=== PATIENT | female | born 1980 | race Caucasian/White ===

== ENCOUNTER 2021-04-20 12:30 | Inpatient (IN) ==
--- NOTE | 2021-04-20 14:10 | ED.ABDFE ---
HPI Time Seen Time Seen by Provider: 04/20/21 14:10 Complaint Chief Complaint:: PATIENT CAME TO ER REPORTS HAVING CONSTIPATION AND LOWER ABDOMEN FOR LAST 3 WEEKS. PATIENT REPORTS TAKING LAXITIVES AND NOW HAVING VOMITING. PATIENT REPORTS TAKING MAG CITRATE WITH RESULTS. COVID-19 Coronavirus risk:travel/contact w/high risk person: No Has patient experienced Coronavirus symptoms: No Source History Provided: Patient Mode of arrival Mode of Arrival: Wheelchair Timing Onset of Chief Complaint: 04/20/21 PMH PMH Past Medical History: Yes Past Medical History: Hypertension Past Surgical History: Yes Surgical History: Cholecystectomy Family History History of Family Medical Conditions: Yes Family Medical History: Diabetes Mellitus, Cancer and Hypertension Social History Alcohol Use: Rarely Do you use any recreational Drugs:: No Lives With: Family Lives Where: Home Travel Risk Coronavirus risk:travel/contact w/high risk person: No Has patient experienced Coronavirus symptoms: No Infectious screening In the last 2 months have you had wt loss of >10#?: NO Have you had fever, night sweats or hemotysis?: No Have you traveled outside the country in the last 6 months?: No Isolation: Standard PE Vital Signs Vitals: Temperature 97.6 F Pulse Rate 80 Respiratory Rate 18 Blood Pressure 180/75 O2 Sat by Pulse Oximetry 97 ROR Labs Reviewed Result Diagrams: 04/20/21 14:24 04/20/21 14:24 Laboratory: WBC 8.5 X10^3/uL (3.6-10.0) 04/20/21 14:24 RBC 3.98 X10^6/uL (3.5-5.4) 04/20/21 14:24 Hgb 8.5 g/dL (12.0-16.0) L 04/20/21 14:24 Hct 27.6 % (36.0-47.0) L 04/20/21 14:24 MCV 69.4 fL (80.0-100.0) L 04/20/21 14:24 MCH 21.3 pg (27.0-34.0) L 04/20/21 14:24 MCHC 30.7 g/dL (33.0-35.0) L 04/20/21 14:24 RDW 20.2 % (11.6-16.5) H 04/20/21 14:24 Plt Count 489 X10^3/uL (150.0-450.0) H 04/20/21 14:24 Plt Count Comment Increased (ADEQUATE) A 04/20/21 14:24 MPV 6.7 fL (7.4-11.0) L 04/20/21 14:24 Neut % (Auto) 78.4 % (42.0-75.0) H 04/20/21 14:24 Lymph % (Auto) 12.5 % (21.0-51.0) L 04/20/21 14:24 [place] % (Auto) 8.6 % (0.0-13.0) 04/20/21 14:24 Eos % (Auto) 0.2 % (0.9-2.9) L 04/20/21 14:24 Baso % (Auto) 0.3 % (0.2-1.0) 04/20/21 14:24 Neut # (Auto) 6.6 x10^3/uL (2.2-4.8) H 04/20/21 14:24 Lymph # (Auto) 1.1 X10^3/uL (1.3-2.9) L 04/20/21 14:24 [place] # (Auto) 0.7 x10^3/uL (0.3-0.8) 04/20/21 14:24 Eos # (Auto) 0.0 x10^3/uL (0.0-0.2) 04/20/21 14:24 Baso # (Auto) 0.0 X10^3/uL (0.0-0.1) 04/20/21 14:24 Absolute Nucleated RBC 0.0 /100WBC 04/20/21 14:24 Plt Morphology Comment Normal (NORMAL) 04/20/21 14:24 RBC Morphology Abnormal (NORMAL) A 04/20/21 14:24 Hypochromasia 1+ A 04/20/21 14:24 Anisocytosis 1+ A 04/20/21 14:24 Microcytosis 1+ A 04/20/21 14:24 Sodium 139 mmol/L (136-145) 04/20/21 14:24 Corrected Sodium TNP 04/20/21 14:24 Potassium 5.4 mmol/L (3.5-5.1) H 04/20/21 14:24 Chloride 102 mmol/L (98-107) 04/20/21 14:24 Carbon Dioxide 21.9 mmol/L (21-32) 04/20/21 14:24 BUN 47 mg/dL (7-18) H 04/20/21 14:24 Creatinine 4.45 mg/dL (0.55-1.02) H 04/20/21 14:24 Est GFR (MDRD) Af Amer 14 (>60) L 04/20/21 14:24 Est GFR (MDRD) Non-Af 12 (>60) L 04/20/21 14:24 Glucose 97 mg/dL (65-99) 04/20/21 14:24 Calcium 8.8 mg/dL (8.5-10.1) 04/20/21 14:24 Corrected Calcium 9.8 mg/dL (8.5-10.1) 04/20/21 14:24 Total Bilirubin 0.40 mg/dL (0.2-1.0) 04/20/21 14:24 AST 11 Units/L (15-37) L 04/20/21 14:24 ALT 10 Units/L (12-78) L 04/20/21 14:24 Alkaline Phosphatase 93 Units/L (46-116) 04/20/21 14:24 Total Protein 7.3 g/dL (6.4-8.2) 04/20/21 14:24 Albumin 2.8 g/dL (3.4-5.0) L 04/20/21 14:24 Globulin 4.5 g/dL (2.5-4.5) 04/20/21 14:24 Albumin/Globulin Ratio 0.6 Ratio (1.1-2.1) L 04/20/21 14:24 Amylase 20 Units/L (25-115) L 04/20/21 14:24 Lipase 68 Units/L (73-393) L 04/20/21 14:24 Specimen Type Clean catch urine 04/20/21 14:13 Urine Color [place] (YELLOW) 04/20/21 14:13 Urine Appearance Cloudy (CLEAR) 04/20/21 14:13 Urine pH 5.0 (5.0 - 8.0) 04/20/21 14:13 Ur Specific [place] 1.015 (1.000-1.030) 04/20/21 14:13 Urine Protein 3+ (NEGATIVE) 04/20/21 14:13 Urine Glucose (UA) Negative (NEGATIVE) 04/20/21 14:13 Urine Ketones Negative (NEGATIVE) 04/20/21 14:13 Urine Occult Blood 5+ (NEGATIVE) 04/20/21 14:13 Urine Nitrite Positive (NEGATIVE) 04/20/21 14:13 Urine Bilirubin Negative (NEGATIVE) 04/20/21 14:13 Urine Urobilinogen Normal (NORMAL) 04/20/21 14:13 Ur Leukocyte Esterase 3+ (NEGATIVE) 04/20/21 14:13 Urine RBC 3-5 /HPF (0-3) A 04/20/21 14:13 Urine WBC 5-10 /HPF (0-5) A 04/20/21 14:13 Ur Squamous Epith Cells Many /HPF (NEGATIVE) 04/20/21 14:13 Ur Transition Epith Cell Few /HPF (NEGATIVE) 04/20/21 14:13 Amorphous Sediment 1+ /HPF (NEGATIVE) 04/20/21 14:13 Urine Bacteria 3+ /HPF (NEGATIVE) 04/20/21 14:13 Ur Culture Indicated? No/not indicated 04/20/21 14:13 Opioid Opioid Risk Tool Age (Theodore box if 16-45): Yes History of Preadolescent Sexual Abuse: No Total: 1 Total Score Risk Category: Low Risk Copyright: Davonte BECKWITH predicting aberrant behaviors Diagnosis Discharge Problem: Diverticulitis, Kidney stone, Abdominal pain Instructions Instructions: Kidney Stones, [id number] Diverticulitis, [id number] Abdominal Pain, Adult Forms: Precautions for COVID19 Patient Portal Social Distancing
[2021-04-20] MEDS ORDERED: TORADOL 60 MG VIAL IM ONE (14:11)
[2021-04-20] MEDS ORDERED: NORFLEX INJ IM ONE (14:11)
[2021-04-20 14:27] LABS: BILIRUBIN,URINE NEGATIVE (NEGATIVE); BLOOD/HEMOGLOBIN,URINE 5+ (NEGATIVE); GLUCOSE, URINE NEGATIVE (NEGATIVE); KETONES,URINE NEGATIVE (NEGATIVE); LEUKOCYTE ESTERASE ,URINE 3+ (NEGATIVE); NITRITES,URINE POSITIVE (NEGATIVE); PROTEIN,URINE 3+ (NEGATIVE); UROBILINOGEN,URINE NORMAL (NORMAL)
[2021-04-20] MEDS ORDERED: TORADOL 60 MG VIAL ONE (14:28)
[2021-04-20 14:35] LABS: APPEARANCE,URINE CLOUDY (CLEAR); COLOR,URINE ORANGE (YELLOW)
[2021-04-20 14:36] LABS: AMORPHOUS SEDIMENT,UR 1+ /HPF (NEGATIVE); BACTERIA,URINE 3+ /HPF (NEGATIVE); SQUAMOUS EPITHELIAL CELL,UR MANY /HPF (NEGATIVE); TRANSITIONAL EPI CELLS,URINE FEW /HPF (NEGATIVE)
[2021-04-20 14:38] LABS: BASOPHILS % (AUTO) 0.3 % (0.2-1.0); EOSINOPHILS % (AUTO) 0.2 % (0.9-2.9); HEMATOCRIT 27.6 % (36.0-47.0); HEMOGLOBIN 8.5 g/dL (12.0-16.0); LYMPHOCYTES # (AUTO) 1.1 X10^3/uL (1.3-2.9); LYMPHOCYTES % (AUTO) 12.5 % (21.0-51.0); MEAN CORPUSCULAR HEMOGLOBIN 21.3 pg (27.0-34.0); MEAN CORPUSCULAR HGB CONC 30.7 g/dL (33.0-35.0); MEAN CORPUSCULAR VOLUME 69.4 fL (80.0-100.0); MEAN PLATELET VOLUME 6.7 fL (7.4-11.0); MONOCYTES # (AUTO) 0.7 x10^3/uL (0.3-0.8); MONOCYTES % (AUTO) 8.6 % (0.0-13.0); NEUTROPHILS # (AUTO) 6.6 x10^3/uL (2.2-4.8); NEUTROPHILS % (AUTO) 78.4 % (42.0-75.0); PLATELET COUNT 489 X10^3/uL (150.0-450.0); RED BLOOD COUNT 3.98 X10^6/uL (3.5-5.4); RED CELL DISTRIBUTION WIDTH 20.2 % (11.6-16.5); WHITE BLOOD COUNT 8.5 X10^3/uL (3.6-10.0)
[2021-04-20 14:47] LABS: ALANINE AMINOTRANSFERASE 10 Units/L (12-78); ALBUMIN 2.8 g/dL (3.4-5.0); ALKALINE PHOSPHATASE 93 Units/L (46-116); AMYLASE 20 Units/L (25-115); ASPARTATE AMINO TRANSFERASE 11 Units/L (15-37); BLOOD UREA NITROGEN 47 mg/dL (7-18); CALCIUM 8.8 mg/dL (8.5-10.1); CARBON DIOXIDE 21.9 mmol/L (21-32); CHLORIDE 102 mmol/L (98-107); COR CA(FOR HYPOALB) 9.8 mg/dL (8.5-10.1); CREATININE 4.45 mg/dL (0.55-1.02); LIPASE 68 Units/L (73-393); SODIUM 139 mmol/L (136-145); TOTAL PROTEIN 7.3 g/dL (6.4-8.2); eGFR NON BLACK RACES 12 (>60)
[2021-04-20 14:54] LABS: ANISOCYTOSIS 1+; HYPOCHROMASIA 1+; MICROCYTOSIS 1+; PLATELET MORPHOLOGY COMMENT NORMAL (NORMAL)
--- NOTE | 2021-04-20 14:56 | CT ---
HISTORYPt c/o constipation and lower abdominal pain x's 3 days.STUDYABDOMEN/PELVIS W/O CONCOMPARISONNone.TECHNIQUEMultiple axial images of the abdomen and pelvis were obtained from the lung bases to the pubic symphysis without the administration of IV contrast. Dose reduction techniques including Automated Exposure Control (AEC) and adjustment of mA and kV were utilized.FINDINGSLack of contrast limits evaluation.There is suboptimal signal to noise and streak artifact. The body wall is not within the field of view completely.The lung bases are clear. The heart is normal in size. Post cholecystectomy. The liver, spleen, pancreas, and adrenal glands have a benign appearance. There is mild right hydroureteronephrosis but no distal obstructing calculus is identified. The left kidney appears benign. Uterus is present. Urinary bladder appears decompressed. Suspect free fluid in the pelvis. There is diverticulosis with pericolic stranding of adjacent to the sigmoid colon such as image 75 series 3. The presumed appendix appears benign and can be seen on image 72-85 of series 3. Negative for bowel obstruction. Non-atherosclerotic normal caliber abdominal aorta. There is retroperitoneal and pelvic adenopathy. For example there is a presumed left hemipelvic lymph node adjacent to the bifurcation of the iliac vessels that measures 2.5 cm short axis image 76 series 3. 2 cm short axis left periaortic lymph node image 64 series 3. No discernible free air or abscess. Incisional change in the lower anterior body wall. No acute osseous abnormality.IMPRESSIONLimited study.There is inflammatory fat stranding about the sigmoid colon in the left lower quadrant suspicious for acute uncomplicated diverticulitis. Consider colonoscopy after appropriate treatment.Pathologically enlarged lymph nodes in the retroperitoneum and pelvis, atypical for uncomplicated diverticulitis. This may be reactive from infection but lymphoma or metastatic adenopathy is not excluded. Recommend at a minimum a three-month CT follow-up study to document resolution. Other management options include PET-CT or biopsy.Mild right hydronephrosis without distal obstructing calculus. The urinary bladder is not well evaluated but appears decompressed. Hydronephrosis could be due to inflammation in the pelvis or secondary to pelvic adenopathy.Consider addition of IV contrast for better evaluation.Electronically signed by: Dusty Siddiqui (April 20, 2021 14:54:31)
[2021-04-20] MEDS ORDERED: FLEXERIL TAB 10 MG ONE (15:03)
[2021-04-20] MEDS: FLEXERIL TAB 10 MG PO PRN (15:33)
[2021-04-20] MEDS ORDERED: CIPRO TAB 500 MG PO ONE ×2 (17:41→17:55)
[2021-04-20] MEDS ORDERED: FLAGYL TAB 500 MG PO ONE (17:42)
[2021-04-20] MEDS ORDERED: FLAGYL TAB 250 MG PO ONE (17:55)
[2021-04-20] MEDS ORDERED: NS 1000 ML 1,000 ML IV ONE (19:20)
[2021-04-20] MEDS ORDERED: NS 1000 ML 1,000 ML ONE (19:33)
[2021-04-20] MEDS ORDERED: ZOFRAN INJ 4 MG VIAL IVP ONE (20:09)
[2021-04-20] MEDS ORDERED: ZOFRAN INJ 4 MG VIAL ONE (20:14)
[2021-04-20] MEDS ORDERED: DEMEROL INJ ONE (20:14)
[2021-04-20] MEDS: DEMEROL INJ IVP ONE ×2 (20:19→20:21)
[2021-04-20] MEDS ORDERED: CIPRO IV 400 MG PREMIX* 400 MG/200 ML IV.SOLN. IV SCH (21:22)
[2021-04-20] MEDS ORDERED: PEPCID 20 MG IV PREMIX* 20 MG/50 ML BAG IV PRN (21:22)
[2021-04-20] MEDS ORDERED: CIPRO IV 400 MG PREMIX* 0 MG/0 ML IV.SOLN. IV ONE (21:38)
[2021-04-20] MEDS: NS 1000 ML 1,000 ML IV SCH (21:40)
[2021-04-20] MEDS: FLAGYL IV PREMIX 500 MG BAG 500 MG/100 ML BAG IV SCH (22:10)
[2021-04-21] MEDS ORDERED: FLAGYL IV PREMIX 500 MG BAG 500 MG/100 ML BAG IV ONE (01:47)
[2021-04-21] MEDS: FLAGYL IV PREMIX 500 MG BAG 500 MG/100 ML BAG IV SCH ×3 (02:03→17:04)
[2021-04-21] MEDS ORDERED: FLEXERIL TAB 10 MG ONE (03:35)
[2021-04-21] MEDS ORDERED: ZOFRAN INJ 4 MG VIAL ONE (03:39)
[2021-04-21] MEDS: FLEXERIL TAB 10 MG PO PRN ×3 (03:40→22:56)
[2021-04-21] MEDS: ZOFRAN INJ 4 MG VIAL IVP PRN ×2 (03:44→16:07)
[2021-04-21] MEDS ORDERED: DEMEROL INJ ONE (04:45)
[2021-04-21] MEDS ORDERED: NS 1000 ML 1,000 ML ONE (04:46)
[2021-04-21] MEDS: DEMEROL INJ IVP PRN ×3 (04:52→20:36)
[2021-04-21 06:02] LABS: BASOPHILS % (AUTO) 0.4 % (0.2-1.0); EOSINOPHILS % (AUTO) 0.5 % (0.9-2.9); HEMATOCRIT 25.2 % (36.0-47.0); HEMOGLOBIN 7.7 g/dL (12.0-16.0); LYMPHOCYTES % (AUTO) 12.3 % (21.0-51.0); MEAN CORPUSCULAR HEMOGLOBIN 21.5 pg (27.0-34.0); MEAN CORPUSCULAR HGB CONC 30.7 g/dL (33.0-35.0); MONOCYTES # (AUTO) 0.7 x10^3/uL (0.3-0.8); MONOCYTES % (AUTO) 9.6 % (0.0-13.0); NEUTROPHILS % (AUTO) 77.2 % (42.0-75.0); PLATELET COUNT 458 X10^3/uL (150.0-450.0); RED CELL DISTRIBUTION WIDTH 20.2 % (11.6-16.5); WHITE BLOOD COUNT 7.7 X10^3/uL (3.6-10.0)
[2021-04-21 06:23] LABS: ALANINE AMINOTRANSFERASE 9 Units/L (12-78); ALBUMIN 2.5 g/dL (3.4-5.0); ALKALINE PHOSPHATASE 88 Units/L (46-116); AMYLASE 17 Units/L (25-115); ASPARTATE AMINO TRANSFERASE 10 Units/L (15-37); BLOOD UREA NITROGEN 50 mg/dL (7-18); CALCIUM 8.5 mg/dL (8.5-10.1); CARBON DIOXIDE 20.4 mmol/L (21-32); CHLORIDE 104 mmol/L (98-107); COR CA(FOR HYPOALB) 9.7 mg/dL (8.5-10.1); CREATININE 4.43 mg/dL (0.55-1.02); LIPASE 59 Units/L (73-393); SODIUM 139 mmol/L (136-145); TOTAL PROTEIN 6.9 g/dL (6.4-8.2); eGFR NON BLACK RACES 12 (>60)
[2021-04-21] MEDS: NS 1000 ML 1,000 ML IV SCH ×4 (06:45→22:56)
[2021-04-21 06:58] LABS: ANISOCYTOSIS 1+; PLATELET MORPHOLOGY COMMENT NORMAL (NORMAL)
[2021-04-21 07:07] LABS: HYPOCHROMASIA SLIGHT; MICROCYTOSIS SLIGHT
[2021-04-21 08:38] VITALS: BMI 74.9
[2021-04-21] MEDS ORDERED: FLAGYL IV PREMIX 500 MG BAG 500 MG/100 ML BAG IV SCH (09:00)
--- NOTE | 2021-04-21 11:31 | DR.H&P ---
H&P History & Physical for Day of: H&P Date: 04/21/21 Chief Complaint Chief Complaint: Left lower abdominal pain Nausea and vomiting Allergies Allergies Allergy/AdvReac Type Severity Reaction Status Date / Time latex Allergy Verified 04/20/21 21:47 promethazine [From Phenergan] Allergy Verified 04/20/21 20:45 sulfamethoxazole Allergy Verified 04/20/21 12:54 [From Bactrim] trimethoprim [From Bactrim] Allergy Verified 04/20/21 12:54 History of Present Illness History of Present Illness: Pt is a 40 year old female with no past medical history presenting after having worsening abdominal pain over the past 2 weeks primarily in the left lower quadrant. She reports over the past month she has been having constipation and was taking laxatives to help. Abdominal pain became worse and started to cause her to have nausea and vomiting. She also reported feeling some dysuria but denies fevers, chills. Labs/imaging: Wbc 7.7, Hgb 7.7, Plt 458, Na 139, K 5.1, Creatinine 4.43, Glucose 94, UA c/w infection however reflux culture was not ordered before antibiotics were given, will order urine culture. COVID-19 negative, CTAP: There is inflammatory fat stranding about the sigmoid colon in the left lower quadrant suspicious for acute uncomplicated diverticulitis. Consider colonoscopy after appropriate treatment. Pathologically enlarged lymph nodes in the retroperitoneum and pelvis, atypical for uncomplicated diverticulitis. This may be reactive from infection but lymphoma or metastatic adenopathy is not excluded. Recommend at a minimum a three-month CT follow-up study to document resolution. Other management options include PET- CT or biopsy. Mild right hydronephrosis without distal obstructing calculus. The urinary bladder is not well evaluated but appears decompressed. Hydronephrosis could be due to inflammation in the pelvis or secondary to pelvic adenopathy. Pt started on IV antibiotics Ciprofloxacin and Flagyl for diverticulitis. Ciprofloxacin also for coverage and treatment of UTI. Findings on CTAP, pt possibly had passed kidney stone recently, continue IVF NS@150ml/h for CANDI. Full liquid diet. Tylenol prn for pain. Continue to monitor and follow up labs/imaging in the morning. 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 Family History Family Medical History: Diabetes Mellitus, Cancer and Hypertension Social History Alcohol Use: Rarely Drug Use: None Medications Home Medications: latex Allergy (Verified 04/20/21 21:47) promethazine [From Phenergan] Allergy (Verified 04/20/21 20:45) sulfamethoxazole [From Bactrim] Allergy (Verified 04/20/21 12:54) trimethoprim [From Bactrim] Allergy (Verified 04/20/21 12:54) CONTINUE taking the following medications acetaminophen [Tylenol] 650 mg PO Q4H PRN 04/20/21 [History] apple cider vinegar 300 mg PO DAILY 04/20/21 [History] docusate sodium [Colace] 100 mg PO BID 04/20/21 [History] naproxen sodium [Aleve] 220 mg PO BID 04/20/21 [History] Labs Result Diagrams: 04/21/21 05:12 04/21/21 05:12 Labs: Laboratory WBC 7.7 X10^3/uL (3.6-10.0) 04/21/21 05:12 RBC 3.60 X10^6/uL (3.5-5.4) 04/21/21 05:12 Hgb 7.7 g/dL (12.0-16.0) L 04/21/21 05:12 Hct 25.2 % (36.0-47.0) L 04/21/21 05:12 MCV 70.0 fL (80.0-100.0) L 04/21/21 05:12 MCH 21.5 pg (27.0-34.0) L 04/21/21 05:12 MCHC 30.7 g/dL (33.0-35.0) L 04/21/21 05:12 RDW 20.2 % (11.6-16.5) H 04/21/21 05:12 Plt Count 458 X10^3/uL (150.0-450.0) H 04/21/21 05:12 Plt Count Comment Increased (ADEQUATE) A 04/21/21 05:12 MPV 7.0 fL (7.4-11.0) L 04/21/21 05:12 Neut % (Auto) 77.2 % (42.0-75.0) H 04/21/21 05:12 Lymph % (Auto) 12.3 % (21.0-51.0) L 04/21/21 05:12 [place] % (Auto) 9.6 % (0.0-13.0) 04/21/21 05:12 Eos % (Auto) 0.5 % (0.9-2.9) L 04/21/21 05:12 Baso % (Auto) 0.4 % (0.2-1.0) 04/21/21 05:12 Neut # (Auto) 6.0 x10^3/uL (2.2-4.8) H 04/21/21 05:12 Lymph # (Auto) 1.0 X10^3/uL (1.3-2.9) L 04/21/21 05:12 [place] # (Auto) 0.7 x10^3/uL (0.3-0.8) 04/21/21 05:12 Eos # (Auto) 0.0 x10^3/uL (0.0-0.2) 04/21/21 05:12 Baso # (Auto) 0.0 X10^3/uL (0.0-0.1) 04/21/21 05:12 Absolute Nucleated RBC 0.0 /100WBC 04/21/21 05:12 Plt Morphology Comment Normal (NORMAL) 04/21/21 05:12 RBC Morphology Abnormal (NORMAL) A 04/21/21 05:12 Hypochromasia Slight A 04/21/21 05:12 Anisocytosis 1+ A 04/21/21 05:12 Microcytosis Slight A 04/21/21 05:12 Sodium 139 mmol/L (136-145) 04/21/21 05:12 Corrected Sodium TNP 04/21/21 05:12 Potassium 5.1 mmol/L (3.5-5.1) 04/21/21 05:12 Chloride 104 mmol/L (98-107) 04/21/21 05:12 Carbon Dioxide 20.4 mmol/L (21-32) L 04/21/21 05:12 BUN 50 mg/dL (7-18) H 04/21/21 05:12 Creatinine 4.43 mg/dL (0.55-1.02) H 04/21/21 05:12 Est GFR (MDRD) Af Amer 14 (>60) L 04/21/21 05:12 Est GFR (MDRD) Non-Af 12 (>60) L 04/21/21 05:12 Glucose 94 mg/dL (65-99) 04/21/21 05:12 Calcium 8.5 mg/dL (8.5-10.1) 04/21/21 05:12 Corrected Calcium 9.7 mg/dL (8.5-10.1) 04/21/21 05:12 Total Bilirubin 0.40 mg/dL (0.2-1.0) 04/21/21 05:12 AST 10 Units/L (15-37) L 04/21/21 05:12 ALT 9 Units/L (12-78) L 04/21/21 05:12 Alkaline Phosphatase 88 Units/L (46-116) 04/21/21 05:12 Total Protein 6.9 g/dL (6.4-8.2) 04/21/21 05:12 Albumin 2.5 g/dL (3.4-5.0) L 04/21/21 05:12 Globulin 4.4 g/dL (2.5-4.5) 04/21/21 05:12 Albumin/Globulin Ratio 0.6 Ratio (1.1-2.1) L 04/21/21 05:12 Amylase 17 Units/L (25-115) L 04/21/21 05:12 Lipase 59 Units/L (73-393) L 04/21/21 05:12 Specimen Type Clean catch urine 04/20/21 14:13 Urine Color [place] (YELLOW) 04/20/21 14:13 Urine Appearance Cloudy (CLEAR) 04/20/21 14:13 Urine pH 5.0 (5.0 - 8.0) 04/20/21 14:13 Ur Specific [place] 1.015 (1.000-1.030) 04/20/21 14:13 Urine Protein 3+ (NEGATIVE) 04/20/21 14:13 Urine Glucose (UA) Negative (NEGATIVE) 04/20/21 14:13 Urine Ketones Negative (NEGATIVE) 04/20/21 14:13 Urine Occult Blood 5+ (NEGATIVE) 04/20/21 14:13 Urine Nitrite Positive (NEGATIVE) 04/20/21 14:13 Urine Bilirubin Negative (NEGATIVE) 04/20/21 14:13 Urine Urobilinogen Normal (NORMAL) 04/20/21 14:13 Ur Leukocyte Esterase 3+ (NEGATIVE) 04/20/21 14:13 Urine RBC 3-5 /HPF (0-3) A 04/20/21 14:13 Urine WBC 5-10 /HPF (0-5) A 04/20/21 14:13 Ur Squamous Epith Cells Many /HPF (NEGATIVE) 04/20/21 14:13 Ur Transition Epith Cell Few /HPF (NEGATIVE) 04/20/21 14:13 Amorphous Sediment 1+ /HPF (NEGATIVE) 04/20/21 14:13 Urine Bacteria 3+ /HPF (NEGATIVE) 04/20/21 14:13 Ur Culture Indicated? No/not indicated 04/20/21 14:13 SARS CoV-2 RNA Rapid ECHO Negative (NEGATIVE) 04/20/21 19:54 Review of Systems Constitutional: Weakness; denies Fever and Chills Eyes: No Symptoms Reported ENT: No Symptoms Reported Respiratory: No Symptoms Reported Cardiovascular: No Symptoms Reported Gastrointestinal: Nausea, Vomiting and Abdominal Pain Genitourinary: Dysuria and Hematuria Musculoskeletal: No Symptoms Reported Skin: No Symptoms Reported Neurological: No Symptoms Reported Physical Exam Vital Signs: Temperature 98.2 F Pulse Rate [Brachial] 75 Pulse Rate 80 Respiratory Rate 18 Blood Pressure [Right Arm] 147/80 Blood Pressure [Left Arm] 152/67 Blood Pressure 180/75 O2 Sat by Pulse Oximetry 96 Oriented: Normal Eyes: Normal Ear: Normal Nose: Normal Throat: Normal Respiratory: Clear Throughout Cardiovascular: Normal : Normal Auscultation: Bowel Sounds: Normal Palpation: Normal Tenderness: LLQ, Mild and Moderate Skin: Normal Musculoskeletal: Normal Psychiatric: Normal Mood Description: Calm and Appropriate Affect: Normal Speech Pattern: Clear and Appropriate Assessment/Plan (1) Diverticulitis: Status: Acute (2) UTI (urinary tract infection): Status: Acute (3) Acute kidney injury: Status: Acute Review H&P Reviewed: Yes Patient was examined?: Yes
[2021-04-21] MEDS ORDERED: TYLENOL 500 MG TAB EXTRA STRENGTH PO PRN (11:39)
[2021-04-21] MEDS: CIPRO IV 400 MG PREMIX* 400 MG/200 ML IV.SOLN. IV SCH (20:26)
[2021-04-21] MEDS ORDERED: CIPRO IV 400 MG PREMIX* 400 MG/200 ML IV.SOLN. IV SCH (21:00)
[2021-04-22] MEDS: FLAGYL IV PREMIX 500 MG BAG 500 MG/100 ML BAG IV SCH ×3 (02:37→17:24)
[2021-04-22] MEDS: DEMEROL INJ IVP PRN ×4 (02:37→22:39)
[2021-04-22] MEDS: NS 1000 ML 1,000 ML IV SCH ×4 (03:07→23:18)
[2021-04-22] MEDS: FLEXERIL TAB 10 MG PO PRN ×2 (05:36→17:33)
[2021-04-22] MEDS: CIPRO IV 400 MG PREMIX* 400 MG/200 ML IV.SOLN. IV SCH ×2 (08:41→20:57)
[2021-04-22 08:52] LABS: BASOPHILS % (AUTO) 0.3 % (0.2-1.0); EOSINOPHILS % (AUTO) 0.7 % (0.9-2.9); HEMATOCRIT 24.7 % (36.0-47.0); HEMOGLOBIN 7.6 g/dL (12.0-16.0); LYMPHOCYTES # (AUTO) 0.9 X10^3/uL (1.3-2.9); LYMPHOCYTES % (AUTO) 15.2 % (21.0-51.0); MEAN CORPUSCULAR HEMOGLOBIN 21.5 pg (27.0-34.0); MEAN CORPUSCULAR HGB CONC 30.8 g/dL (33.0-35.0); MEAN CORPUSCULAR VOLUME 69.9 fL (80.0-100.0); MEAN PLATELET VOLUME 6.6 fL (7.4-11.0); MONOCYTES # (AUTO) 0.7 x10^3/uL (0.3-0.8); MONOCYTES % (AUTO) 11.1 % (0.0-13.0); NEUTROPHILS # (AUTO) 4.5 x10^3/uL (2.2-4.8); NEUTROPHILS % (AUTO) 72.7 % (42.0-75.0); PLATELET COUNT 371 X10^3/uL (150.0-450.0); RED BLOOD COUNT 3.53 X10^6/uL (3.5-5.4); RED CELL DISTRIBUTION WIDTH 20.3 % (11.6-16.5); WHITE BLOOD COUNT 6.2 X10^3/uL (3.6-10.0)
[2021-04-22 08:58] LABS: ANISOCYTOSIS 1+; MICROCYTOSIS 1+; PLATELET MORPHOLOGY COMMENT NORMAL (NORMAL)
[2021-04-22 09:02] LABS: ALANINE AMINOTRANSFERASE 10 Units/L (12-78); ALBUMIN 2.4 g/dL (3.4-5.0); ALKALINE PHOSPHATASE 84 Units/L (46-116); ASPARTATE AMINO TRANSFERASE 9 Units/L (15-37); BLOOD UREA NITROGEN 48 mg/dL (7-18); CALCIUM 8.4 mg/dL (8.5-10.1); CARBON DIOXIDE 20.3 mmol/L (21-32); CHLORIDE 107 mmol/L (98-107); COR CA(FOR HYPOALB) 9.7 mg/dL (8.5-10.1); SODIUM 141 mmol/L (136-145); TOTAL PROTEIN 6.6 g/dL (6.4-8.2); eGFR NON BLACK RACES 12 (>60)
[2021-04-22] MEDS ORDERED: ULTRAM PO PRN (10:44)
[2021-04-22] MEDS ORDERED: KAYEXALATE SUSP PO ONE (10:50)
--- NOTE | 2021-04-22 10:55 | PCM.PROG ---
Progress Note Progress Note for Day of Date of Exam: 04/22/21 Subjective Subjective: Pt is a 40 year old female with no past medical history admitted for sigmoidal diverticulitis, acute cystitis, and acute renal failure. This morning pt reports no change in LLQ abdominal pain and has decreased appetite. She is also reporting right lower back pain. Labs/imaging: Wbc 6.2, Hgb 7.6, Plt 371, Na 141, K 5.5, Creatinine 4.43>4.30, Glucose 100, Urine culture pending. Hospital/treatment plan includes: IVF NS@150ml/h, IV antibiotics Ciprofloxacin and Flagyl. Plan to change patient to CLD due to continuing abdominal pain. Tramadol and Tylenol prn for pain. Will get Renal U/S to evaluate kidneys, strict I&O. Slight improvement in renal function. Hyperkalemia on labs, will give kayexalate x 1 dose. Otherwise continue current treatment plan. Monitor and follow up labs/imaging in the morning. Past Medical Family Social History Past Med/Fam/Surg Hx: No changes since H&P Allergies: Allergies latex Allergy (Verified 04/20/21 21:47) promethazine [From Phenergan] Allergy (Verified 04/20/21 20:45) sulfamethoxazole [From Bactrim] Allergy (Verified 04/20/21 12:54) trimethoprim [From Bactrim] Allergy (Verified 04/20/21 12:54) Review of Systems ROS: No change since H&P Vital Signs and I&O's Vital Signs: Temperature 97.5 F Pulse Rate [Brachial] 70 Pulse Rate 80 Respiratory Rate 20 Blood Pressure [Right Arm] 173/87 Blood Pressure [Left Arm] 163/80 Blood Pressure 180/75 O2 Sat by Pulse Oximetry 100 Intake and Output: Intake & Output 04/19/21 04/20/21 04/21/21 04/22/21 23:59 23:59 23:59 23:59 Intake Total 530 / 530 5070 / 5070 1100 / 1100 Balance 530 / 530 5070 / 5070 1100 / 1100 Physical Exam Oriented: Normal Eyes: Normal Ear: Normal Nose: Normal Throat: Normal Respiratory: Normal Cardiovascular: Normal : Normal Auscultation: Bowel Sounds: Normal Tenderness: LLQ, Mild and Moderate Skin: Normal Musculoskeletal: Normal Psychiatric: Normal Mood Description: Calm and Appropriate Affect: Normal Speech Pattern: Clear and Appropriate Laboratory and Diagnostics Result Diagrams: 04/22/21 08:35 04/22/21 08:35 Labs: 04/21/21 19:00 Urine,Clean Catch Urine Culture - Preliminary Laboratory WBC 6.2 X10^3/uL (3.6-10.0) 04/22/21 08:35 RBC 3.53 X10^6/uL (3.5-5.4) 04/22/21 08:35 Hgb 7.6 g/dL (12.0-16.0) L 04/22/21 08:35 Hct 24.7 % (36.0-47.0) L 04/22/21 08:35 MCV 69.9 fL (80.0-100.0) L 04/22/21 08:35 MCH 21.5 pg (27.0-34.0) L 04/22/21 08:35 MCHC 30.8 g/dL (33.0-35.0) L 04/22/21 08:35 RDW 20.3 % (11.6-16.5) H 04/22/21 08:35 Plt Count 371 X10^3/uL (150.0-450.0) 04/22/21 08:35 Plt Count Comment Adequate (ADEQUATE) 04/22/21 08:35 MPV 6.6 fL (7.4-11.0) L 04/22/21 08:35 Neut % (Auto) 72.7 % (42.0-75.0) 04/22/21 08:35 Lymph % (Auto) 15.2 % (21.0-51.0) L 04/22/21 08:35 [place] % (Auto) 11.1 % (0.0-13.0) 04/22/21 08:35 Eos % (Auto) 0.7 % (0.9-2.9) L 04/22/21 08:35 Baso % (Auto) 0.3 % (0.2-1.0) 04/22/21 08:35 Neut # (Auto) 4.5 x10^3/uL (2.2-4.8) 04/22/21 08:35 Lymph # (Auto) 0.9 X10^3/uL (1.3-2.9) L 04/22/21 08:35 [place] # (Auto) 0.7 x10^3/uL (0.3-0.8) 04/22/21 08:35 Eos # (Auto) 0.0 x10^3/uL (0.0-0.2) 04/22/21 08:35 Baso # (Auto) 0.0 X10^3/uL (0.0-0.1) 04/22/21 08:35 Absolute Nucleated RBC 0.1 /100WBC 04/22/21 08:35 Plt Morphology Comment Normal (NORMAL) 04/22/21 08:35 RBC Morphology Abnormal (NORMAL) A 04/22/21 08:35 Hypochromasia Slight A 04/21/21 05:12 Anisocytosis 1+ A 04/22/21 08:35 Microcytosis 1+ A 04/22/21 08:35 Sodium 141 mmol/L (136-145) 04/22/21 08:35 Corrected Sodium TNP 04/22/21 08:35 Potassium 5.5 mmol/L (3.5-5.1) H 04/22/21 08:35 Chloride 107 mmol/L (98-107) 04/22/21 08:35 Carbon Dioxide 20.3 mmol/L (21-32) L 04/22/21 08:35 BUN 48 mg/dL (7-18) H 04/22/21 08:35 Creatinine 4.30 mg/dL (0.55-1.02) H 04/22/21 08:35 Est GFR (MDRD) Af Amer 15 (>60) L 04/22/21 08:35 Est GFR (MDRD) Non-Af 12 (>60) L 04/22/21 08:35 Glucose 100 mg/dL (65-99) H 04/22/21 08:35 Calcium 8.4 mg/dL (8.5-10.1) L 04/22/21 08:35 Corrected Calcium 9.7 mg/dL (8.5-10.1) 04/22/21 08:35 Total Bilirubin 0.30 mg/dL (0.2-1.0) 04/22/21 08:35 AST 9 Units/L (15-37) L 04/22/21 08:35 ALT 10 Units/L (12-78) L 04/22/21 08:35 Alkaline Phosphatase 84 Units/L (46-116) 04/22/21 08:35 Total Protein 6.6 g/dL (6.4-8.2) 04/22/21 08:35 Albumin 2.4 g/dL (3.4-5.0) L 04/22/21 08:35 Globulin 4.2 g/dL (2.5-4.5) 04/22/21 08:35 Albumin/Globulin Ratio 0.6 Ratio (1.1-2.1) L 04/22/21 08:35 Amylase 17 Units/L (25-115) L 04/21/21 05:12 Lipase 59 Units/L (73-393) L 04/21/21 05:12 Specimen Type Clean catch urine 04/20/21 14:13 Urine Color [place] (YELLOW) 04/20/21 14:13 Urine Appearance Cloudy (CLEAR) 04/20/21 14:13 Urine pH 5.0 (5.0 - 8.0) 04/20/21 14:13 Ur Specific [place] 1.015 (1.000-1.030) 04/20/21 14:13 Urine Protein 3+ (NEGATIVE) 04/20/21 14:13 Urine Glucose (UA) Negative (NEGATIVE) 04/20/21 14:13 Urine Ketones Negative (NEGATIVE) 04/20/21 14:13 Urine Occult Blood 5+ (NEGATIVE) 04/20/21 14:13 Urine Nitrite Positive (NEGATIVE) 04/20/21 14:13 Urine Bilirubin Negative (NEGATIVE) 04/20/21 14:13 Urine Urobilinogen Normal (NORMAL) 04/20/21 14:13 Ur Leukocyte Esterase 3+ (NEGATIVE) 04/20/21 14:13 Urine RBC 3-5 /HPF (0-3) A 04/20/21 14:13 Urine WBC 5-10 /HPF (0-5) A 04/20/21 14:13 Ur Squamous Epith Cells Many /HPF (NEGATIVE) 04/20/21 14:13 Ur Transition Epith Cell Few /HPF (NEGATIVE) 04/20/21 14:13 Amorphous Sediment 1+ /HPF (NEGATIVE) 04/20/21 14:13 Urine Bacteria 3+ /HPF (NEGATIVE) 04/20/21 14:13 Ur Culture Indicated? No/not indicated 04/20/21 14:13 SARS CoV-2 RNA Rapid ECHO Negative (NEGATIVE) 04/20/21 19:54 Plan (1) Diverticulitis: Status: Acute (2) UTI (urinary tract infection): Status: Acute (3) Acute kidney injury: Status: Acute (4) Hyperkalemia: Status: Acute
--- NOTE | 2021-04-22 12:12 | US ---
HISTORYACUTE RENAL FAILURESTUDYRENAL USCOMPARISONCT 04/20/2021TECHNIQUEMultiple tinsley scale and color flow Doppler images of the kidneys were obtained. The region of the urinary bladder was evaluated as well.FINDINGSThe right kidney measures 12.5 cm in length.Normal cortical thickness and echogenicity but there is mild to moderate hydronephrosis. No stones are seen.The left kidney measures 13.9 cm in length. [Possible minimal hydronephrosis. Normal cortical echogenicity and thickness.]The region of the urinary bladder is grossly unremarkable. Bladder is minimally distended.[id number] right hydronephrosis and possible minimal left-sided hydronephrosis. No bladder dilation is seen. Findings are similar to prior CT.Electronically signed by: Adam Latif (Apr 22, 2021 12:09:33)
[2021-04-22] MEDS: NORVASC TAB 10 MG PO SCH (13:38)
[2021-04-22] MEDS ORDERED: CATAPRES TAB 0.1 MG PO ONE (16:23)
[2021-04-22] MEDS: APRESOLINE INJ 20 MG VIAL IVP PRN (20:56)
[2021-04-23] MEDS: ZOFRAN INJ 4 MG VIAL IVP PRN (02:00)
[2021-04-23] MEDS: FLAGYL IV PREMIX 500 MG BAG 500 MG/100 ML BAG IV SCH ×2 (02:03→10:33)
[2021-04-23] MEDS: FLEXERIL TAB 10 MG PO PRN (02:04)
[2021-04-23] MEDS: DEMEROL INJ IVP PRN (04:52)
[2021-04-23 06:44] LABS: BASOPHILS % (AUTO) 0.3 % (0.2-1.0); EOSINOPHILS # (AUTO) 0.1 x10^3/uL (0.0-0.2); EOSINOPHILS % (AUTO) 0.9 % (0.9-2.9); HEMATOCRIT 23.7 % (36.0-47.0); HEMOGLOBIN 7.2 g/dL (12.0-16.0); LYMPHOCYTES # (AUTO) 0.9 X10^3/uL (1.3-2.9); LYMPHOCYTES % (AUTO) 15.5 % (21.0-51.0); MEAN CORPUSCULAR HEMOGLOBIN 21.4 pg (27.0-34.0); MEAN CORPUSCULAR HGB CONC 30.2 g/dL (33.0-35.0); MEAN CORPUSCULAR VOLUME 70.8 fL (80.0-100.0); MEAN PLATELET VOLUME 6.9 fL (7.4-11.0); MONOCYTES # (AUTO) 0.7 x10^3/uL (0.3-0.8); MONOCYTES % (AUTO) 11.9 % (0.0-13.0); NEUTROPHILS # (AUTO) 4.3 x10^3/uL (2.2-4.8); NEUTROPHILS % (AUTO) 71.4 % (42.0-75.0); PLATELET COUNT 363 X10^3/uL (150.0-450.0); RED BLOOD COUNT 3.35 X10^6/uL (3.5-5.4)
[2021-04-23 06:56] LABS: ALANINE AMINOTRANSFERASE 11 Units/L (12-78); ALBUMIN 2.2 g/dL (3.4-5.0); ALKALINE PHOSPHATASE 83 Units/L (46-116); ASPARTATE AMINO TRANSFERASE 11 Units/L (15-37); BLOOD UREA NITROGEN 47 mg/dL (7-18); CALCIUM 8.2 mg/dL (8.5-10.1); CARBON DIOXIDE 15.8 mmol/L (21-32); CHLORIDE 108 mmol/L (98-107); COR CA(FOR HYPOALB) 9.6 mg/dL (8.5-10.1); CREATININE 4.52 mg/dL (0.55-1.02); SODIUM 141 mmol/L (136-145); TOTAL PROTEIN 6.2 g/dL (6.4-8.2); eGFR NON BLACK RACES 12 (>60)
[2021-04-23 07:24] LABS: ANISOCYTOSIS 1+; HYPOCHROMASIA 1+; MICROCYTOSIS 1+; PLATELET MORPHOLOGY COMMENT NORMAL (NORMAL)
[2021-04-23] MEDS: CIPRO IV 400 MG PREMIX* 400 MG/200 ML IV.SOLN. IV SCH (08:19)
[2021-04-23] MEDS: NORVASC TAB 10 MG PO SCH (08:20)
[2021-04-23] MEDS: APRESOLINE INJ 20 MG VIAL IVP PRN (08:21)
--- NOTE | 2021-04-23 08:32 | W.DIS.FURT ---
Summary of Discharge Discharge Summary of Date Date of Exam: 04/23/21 Admission Date Date of Admission: 04/20/21 Admission Diagnosis Patient Problems (Updated 04/22/21 @ 11:04 by Candido Marinelli) Diverticulitis (Acute) K57.92 Kidney stone (Acute) N20.0 Abdominal pain (Acute) R10.9 Hospital Course: Pt is a 40 year old female with no past medical history admitted for sigmoidal diverticulitis, acute cystitis, and acute renal failure due nephrolithiasis. This morning pt reports no change in LLQ abdominal pain and has decreased appetite. She is also reporting right lower back pain. Labs/imaging: Wbc 6.2, Hgb 7.6, Plt 371, Na 141, K 5.5, Creatinine 4.43>4.30, Glucose 100, Urine culture pending. Hospital/treatment plan includes: IVF NS@150ml/h, IV antibiotics Ciprofloxacin and Flagyl. Plan to change patient to CLD due to continuing abdominal pain. Tramadol and Tylenol prn for pain. Will get Renal U/S to evaluate kidneys, strict I&O. Slight improvement in renal function. Hyperkalemia on labs, will give kayexalate x 1 dose. Otherwise continue current treatment plan. Monitor and follow up labs/imaging in the morning. Vital Signs: Vital Signs (72 hours) 04/20/21 12:54 04/20/21 14:58 04/20/21 20:21 Temperature 97.6 F Pulse Rate 80 Pulse Rate [Brachial] Respiratory Rate 20 18 18 Blood Pressure 180/75 Blood Pressure [Left Arm] Blood Pressure [Right Arm] O2 Sat by Pulse Oximetry 97 04/20/21 20:45 04/20/21 21:25 04/21/21 00:00 Temperature 97.9 F 97.1 F L 97.1 F L Pulse Rate Pulse Rate [Brachial] 76 79 78 Respiratory Rate 26 H 22 Blood Pressure Blood Pressure [Left Arm] 139/72 185/84 Blood Pressure [Right Arm] 147/80 O2 Sat by Pulse Oximetry 100 100 100 04/21/21 04:00 04/21/21 04:52 04/21/21 05:22 Temperature 97.9 F Pulse Rate Pulse Rate [Brachial] 75 Respiratory Rate 30 H 24 23 Blood Pressure Blood Pressure [Left Arm] 135/80 Blood Pressure [Right Arm] O2 Sat by Pulse Oximetry 98 04/21/21 08:00 04/21/21 12:00 04/21/21 13:35 Temperature 98.2 F 97.6 F Pulse Rate Pulse Rate [Brachial] 75 71 Respiratory Rate 18 18 18 Blood Pressure Blood Pressure [Left Arm] 152/67 175/91 Blood Pressure [Right Arm] O2 Sat by Pulse Oximetry 96 100 04/21/21 14:05 04/21/21 16:00 04/21/21 19:36 Temperature 97.7 F Pulse Rate Pulse Rate [Brachial] 78 Respiratory Rate 18 20 19 Blood Pressure Blood Pressure [Left Arm] 171/74 Blood Pressure [Right Arm] O2 Sat by Pulse Oximetry 100 04/21/21 20:00 04/21/21 20:36 04/21/21 21:06 Temperature 97.8 F Pulse Rate Pulse Rate [Brachial] 79 Respiratory Rate 34 H 19 19 Blood Pressure Blood Pressure [Left Arm] 169/81 Blood Pressure [Right Arm] O2 Sat by Pulse Oximetry 100 04/22/21 00:00 04/22/21 02:37 04/22/21 03:07 Temperature 98.1 F Pulse Rate Pulse Rate [Brachial] 76 Respiratory Rate 28 H 24 25 H Blood Pressure Blood Pressure [Left Arm] 173/83 Blood Pressure [Right Arm] O2 Sat by Pulse Oximetry 98 04/22/21 04:00 04/22/21 08:00 04/22/21 08:46 Temperature 97.9 F 97.5 F L Pulse Rate Pulse Rate [Brachial] 74 70 Respiratory Rate 30 H 20 20 Blood Pressure Blood Pressure [Left Arm] 163/80 Blood Pressure [Right Arm] 173/87 O2 Sat by Pulse Oximetry 99 100 04/22/21 09:16 04/22/21 12:00 04/22/21 15:03 Temperature 97.8 F Pulse Rate Pulse Rate [Brachial] 75 Respiratory Rate 20 20 20 Blood Pressure Blood Pressure [Left Arm] Blood Pressure [Right Arm] 181/86 O2 Sat by Pulse Oximetry 100 04/22/21 15:33 04/22/21 16:00 04/22/21 18:05 Temperature 98.0 F Pulse Rate Pulse Rate [Brachial] 78 Respiratory Rate 20 18 Blood Pressure Blood Pressure [Left Arm] 182/94 171/79 Blood Pressure [Right Arm] O2 Sat by Pulse Oximetry 100 04/22/21 20:00 04/22/21 22:39 04/22/21 23:09 Temperature 97.5 F L Pulse Rate Pulse Rate [Brachial] 76 Respiratory Rate 34 H 20 20 Blood Pressure Blood Pressure [Left Arm] 172/70 Blood Pressure [Right Arm] O2 Sat by Pulse Oximetry 100 04/23/21 00:00 04/23/21 04:00 04/23/21 04:52 Temperature 97.7 F 97.6 F Pulse Rate Pulse Rate [Brachial] 78 71 Respiratory Rate 36 H 20 21 Blood Pressure Blood Pressure [Left Arm] 169/79 151/73 Blood Pressure [Right Arm] O2 Sat by Pulse Oximetry 99 97 04/23/21 05:22 04/23/21 08:00 Temperature 97.6 F Pulse Rate Pulse Rate [Brachial] 78 Respiratory Rate 20 22 Blood Pressure Blood Pressure [Left Arm] Blood Pressure [Right Arm] 180/81 O2 Sat by Pulse Oximetry 100 Labs: Laboratory Last Values WBC 6.0 X10^3/uL (3.6-10.0) 04/23/21 05:50 RBC 3.35 X10^6/uL (3.5-5.4) L 04/23/21 05:50 Hgb 7.2 g/dL (12.0-16.0) L 04/23/21 05:50 Hct 23.7 % (36.0-47.0) L 04/23/21 05:50 MCV 70.8 fL (80.0-100.0) L 04/23/21 05:50 MCH 21.4 pg (27.0-34.0) L 04/23/21 05:50 MCHC 30.2 g/dL (33.0-35.0) L 04/23/21 05:50 RDW 20.0 % (11.6-16.5) H 04/23/21 05:50 Plt Count 363 X10^3/uL (150.0-450.0) 04/23/21 05:50 Plt Count Comment Adequate (ADEQUATE) 04/23/21 05:50 MPV 6.9 fL (7.4-11.0) L 04/23/21 05:50 Neut % (Auto) 71.4 % (42.0-75.0) 04/23/21 05:50 Lymph % (Auto) 15.5 % (21.0-51.0) L 04/23/21 05:50 Osborne % (Auto) 11.9 % (0.0-13.0) 04/23/21 05:50 Eos % (Auto) 0.9 % (0.9-2.9) 04/23/21 05:50 Baso % (Auto) 0.3 % (0.2-1.0) 04/23/21 05:50 Neut # (Auto) 4.3 x10^3/uL (2.2-4.8) 04/23/21 05:50 Lymph # (Auto) 0.9 X10^3/uL (1.3-2.9) L 04/23/21 05:50 Osborne # (Auto) 0.7 x10^3/uL (0.3-0.8) 04/23/21 05:50 Eos # (Auto) 0.1 x10^3/uL (0.0-0.2) 04/23/21 05:50 Baso # (Auto) 0.0 X10^3/uL (0.0-0.1) 04/23/21 05:50 Absolute Nucleated RBC 0.1 /100WBC 04/23/21 05:50 Plt Morphology Comment Normal (NORMAL) 04/23/21 05:50 RBC Morphology Abnormal (NORMAL) A 04/23/21 05:50 Hypochromasia 1+ A 04/23/21 05:50 Anisocytosis 1+ A 04/23/21 05:50 Microcytosis 1+ A 04/23/21 05:50 Sodium 141 mmol/L (136-145) 04/23/21 05:50 Corrected Sodium TNP 04/23/21 05:50 Potassium 5.2 mmol/L (3.5-5.1) H 04/23/21 05:50 Chloride 108 mmol/L (98-107) H 04/23/21 05:50 Carbon Dioxide 15.8 mmol/L (21-32) L 04/23/21 05:50 BUN 47 mg/dL (7-18) H 04/23/21 05:50 Creatinine 4.52 mg/dL (0.55-1.02) H 04/23/21 05:50 Est GFR (MDRD) Af Amer 14 (>60) L 04/23/21 05:50 Est GFR (MDRD) Non-Af 12 (>60) L 04/23/21 05:50 Glucose 87 mg/dL (65-99) 04/23/21 05:50 Calcium 8.2 mg/dL (8.5-10.1) L 04/23/21 05:50 Corrected Calcium 9.6 mg/dL (8.5-10.1) 04/23/21 05:50 Total Bilirubin 0.30 mg/dL (0.2-1.0) 04/23/21 05:50 AST 11 Units/L (15-37) L 04/23/21 05:50 ALT 11 Units/L (12-78) L 04/23/21 05:50 Alkaline Phosphatase 83 Units/L (46-116) 04/23/21 05:50 Total Protein 6.2 g/dL (6.4-8.2) L 04/23/21 05:50 Albumin 2.2 g/dL (3.4-5.0) L 04/23/21 05:50 Globulin 4.0 g/dL (2.5-4.5) 04/23/21 05:50 Albumin/Globulin Ratio 0.6 Ratio (1.1-2.1) L 04/23/21 05:50 Amylase 17 Units/L (25-115) L 04/21/21 05:12 Lipase 59 Units/L (73-393) L 04/21/21 05:12 Specimen Type Clean catch urine 04/20/21 14:13 Urine Color [place] (YELLOW) 04/20/21 14:13 Urine Appearance Cloudy (CLEAR) 04/20/21 14:13 Urine pH 5.0 (5.0 - 8.0) 04/20/21 14:13 Ur Specific [place] 1.015 (1.000-1.030) 04/20/21 14:13 Urine Protein 3+ (NEGATIVE) 04/20/21 14:13 Urine Glucose (UA) Negative (NEGATIVE) 04/20/21 14:13 Urine Ketones Negative (NEGATIVE) 04/20/21 14:13 Urine Occult Blood 5+ (NEGATIVE) 04/20/21 14:13 Urine Nitrite Positive (NEGATIVE) 04/20/21 14:13 Urine Bilirubin Negative (NEGATIVE) 04/20/21 14:13 Urine Urobilinogen Normal (NORMAL) 04/20/21 14:13 Ur Leukocyte Esterase 3+ (NEGATIVE) 04/20/21 14:13 Urine RBC 3-5 /HPF (0-3) A 04/20/21 14:13 Urine WBC 5-10 /HPF (0-5) A 04/20/21 14:13 Ur Squamous Epith Cells Many /HPF (NEGATIVE) 04/20/21 14:13 Ur Transition Epith Cell Few /HPF (NEGATIVE) 04/20/21 14:13 Amorphous Sediment 1+ /HPF (NEGATIVE) 04/20/21 14:13 Urine Bacteria 3+ /HPF (NEGATIVE) 04/20/21 14:13 Ur Culture Indicated? No/not indicated 04/20/21 14:13 SARS CoV-2 RNA Rapid ECHO Negative (NEGATIVE) 04/20/21 19:54 Reason For Visit: DEHYDRATION, RENAL FAILURE, HYPERKALEMIA, DIVERTIC Discharge Date Discharge Date: 04/23/21 Discharge Diagnosis All Active Problems (Updated 04/22/21 @ 11:04 by Candido Marinelli) Hyperkalemia (Acute) Acute kidney injury (Acute) UTI (urinary tract infection) (Acute) Diverticulitis (Acute) Kidney stone (Acute) Abdominal pain (Acute) Plan of Treatment: Continue with present treatment and follow up plan. Pt is to keep follow up appointment as instructed and take medications as ordered. Discharge Medications Discharge Medications: latex Allergy (Verified 04/20/21 21:47) promethazine [From Phenergan] Allergy (Verified 04/20/21 20:45) sulfamethoxazole [From Bactrim] Allergy (Verified 04/20/21 12:54) trimethoprim [From Bactrim] Allergy (Verified 04/20/21 12:54) CONTINUE taking the following medications apple cider vinegar 300 mg PO DAILY 04/20/21 [History] docusate sodium [Colace] 100 mg PO BID 04/20/21 [History] New Prescriptions ciprofloxacin HCl 500 mg PO BID 5 Days #10 tab 04/23/21 [Rx] cyclobenzaprine 10 mg PO TID PRN 10 Days #30 tab 04/23/21 [Rx] metronidazole [Flagyl] 500 mg PO TID 5 Days #15 tab 04/23/21 [Rx] tamsulosin [Flomax] 0.4 mg PO QHS 10 Days #10 cap 04/23/21 [Rx] tramadol 50 mg PO Q6H PRN 10 Days #30 tab MDD 4 tabs 04/23/21 [Rx] Discharge Plan Discharge Plan Hospital Course: Pt is a 40 year old female with no past medical history admitted for sigmoidal diverticulitis, acute cystitis, and acute renal failure due nephrolithiasis. This morning pt reports no change in LLQ abdominal pain and has decreased appetite. She is also reporting right lower back pain. Labs/imaging: Wbc 6.2, Hgb 7.6, Plt 371, Na 141, K 5.5, Creatinine 4.43>4.30, Glucose 100, Urine culture pending. Hospital/treatment plan includes: IVF NS@150ml/h, IV antibiotics Ciprofloxacin and Flagyl. Plan to change patient to CLD due to continuing abdominal pain. Tramadol and Tylenol prn for pain. Will get Renal U/S to evaluate kidneys, strict I&O. Slight improvement in renal function. Hyperkalemia on labs, will give kayexalate x 1 dose. Otherwise continue current treatment plan. Monitor and follow up labs/imaging in the morning. Patient Disposition: 01 HOME, SELF-CARE Condition: Stable Health Concerns: Post Hospitalization: new medications and changes needed to prevent readmission or further decline. Pt educated and given instructions on all concerns. Care Plan Goals: Problem: Fluid Volume Deficit Goal: Maintain/Improved Adequate hydration. Instructions: Follow provided instructions. Follow up with primary physician as directed. Contact primary care physician or report to the closest Emergency Room if condition worsens. Plan of Treatment: Continue with present treatment and follow up plan. Pt is to keep follow up appointment as instructed and take medications as ordered. Prescriptions: New cyclobenzaprine 10 mg Tablet 10 mg PO TID PRN10 Days Qty: 30 RF: 0 tramadol 50 mg Tablet 50 mg PO Q6H MDD 4 tabs PRN10 Days Qty: 30 RF: 0 ciprofloxacin HCl 500 mg tablet 500 mg PO BID 5 Days Qty: 10 RF: 0 metronidazole [Flagyl] 500 mg tablet 500 mg PO TID 5 Days Qty: 15 RF: 0 tamsulosin [Flomax] 0.4 mg capsule 0.4 mg PO QHS 10 Days Qty: 10 RF: 0 Continued docusate sodium [Colace] 100 mg Capsule 100 mg PO BID RF: 0 apple cider vinegar 300 mg Tablet 300 mg PO DAILY RF: 0 Discontinued acetaminophen [Tylenol] 325 mg Tablet 650 mg PO Q4H PRNRF: 0 naproxen sodium [Aleve] 220 mg Capsule 220 mg PO BID RF: 0 Follow ups/Referrals Follow ups/Referrals: CHRISTI ELLIS [REFERRING] - 04/24/21 11:15 am SUBHASH AMIN [CONSULTING PHYSICIAN] - (Office will call you with appointment. Referral sent on 04/23/21) Instructions Instructions: Kidney Stones, [id number], Dehydration, Adult, [id number], Diverticulitis, [id number], Hyperkalemia, [id number], Rehydration, Adult, Acute Kidney Injury, Adult, Urinary Tract Infection, Adult, [id number], Abdominal Pain, Adult Stand Alone Forms: Excuse From Work or School, Precautions for COVID19, Patient Portal, Social Distancing
[2021-04-23] MEDS: NS 1000 ML 1,000 ML IV SCH (10:31)
[2021-04-23 12:07] VITALS: BP 174/83
== END 2021-04-23 12:00 | disposition home or self-care (01) | DRG 392 ==
LOC: ER 12:53 → MED/SURG 20:58
PROVIDERS: ADMIT Family Medicine; ATTEND Family Medicine
DX: K59.09 Other constipation; N17.8 Other acute kidney failure; K57.92 Diverticulitis of intestine, part unspecified, without perforation or abscess without bleeding; E86.0 Dehydration; R10.84 Generalized abdominal pain; Z20.822 Contact with and (suspected) exposure to COVID-19; N20.0 Calculus of kidney; N39.0 Urinary tract infection, site not specified; E87.5 Hyperkalemia